=== PATIENT | female | born 1960 | race Caucasian/White ===

== ENCOUNTER 2017-04-10 07:47 | Emergency (ER) | payer OTHER ==
[2017-04-10] MEDS: IBUPROFEN 800 MG TAB PO (10:40)
== END 2017-04-10 11:24 | disposition home or self-care (01) ==
LOC: E/R 07:47
DX: R51 Headache (principal); I10 Essential (primary) hypertension; F43.20 Adjustment disorder, unspecified
CPT/HCPCS: 70450; 99284-25

== ENCOUNTER 2017-09-07 21:00 | Emergency (ER) | payer OTHER ==
[2017-09-07] MEDS: IBUPROFEN 600 MG TAB PO (22:06)
== END 2017-09-07 23:37 | disposition home or self-care (01) ==
LOC: FTE 21:00
DX: M79.661 Pain in right lower leg (principal)
CPT/HCPCS: 73590; 99283-25